=== PATIENT | male | born 1975 | race Two or more races ===

== ENCOUNTER 2018-12-12 12:07 | Emergency (ER) | payer MEDICAID ==
[~2018-12-12] VITALS: Ht 165.1 cm; Wt 68.0 kg
[2018-12-12] MEDS ORDERED: NKM (12:21)
[2018-12-12 12:25] VITALS: BP 155/92
--- NOTE | 2018-12-12 12:25 | NUR ---
ED Nurse Note: pt walked in due t0o right earache started 3 days ago, pt statd he went to pmd and was advise to go to the ed. will continue to monitor.
--- NOTE | 2018-12-12 13:24 | Emergency Room Report ---
History of Present Illness General Chief Complaint: Earache Source: Patient Present Illness HPI 42-year-old male presents to the emergency department complaining of 8 out of 10 severity pain in the right ear with fullness sensation x. Patient denies ear discharge. He denies trauma to the ear. He reports he was seen by his primary care provider who referred him to the emergency department. Patient denies fevers or chills. Denies sore throat, high fevers, lethargy, neck pain/ stiffness,CP, Palpitations, LOC, AMS, seizures, paresthesias, or changes in Hearing or vision, no Sudden severe CONTRERAS. Denies dizziness or tinnitus Allergies: Coded Allergies: No Known Allergies (Unverified , 12/12/18) Patient History Past Medical History: see triage record Past Surgical History: none Pertinent Family History: none Immunizations: UTD Reviewed Nursing Documentation: PMH: Agreed; PSxH: Agreed Nursing Documentation-PMH Past Medical History: No Stated History Review of Systems All Other Systems: negative except mentioned in HPI Physical Exam Vital Signs Date Time Temp Pulse Resp B/P (MAP) Pulse Ox O2 Delivery O2 Flow Rate FiO2 12/12/18 12:18 98.1 59 16 155/92 (113) 99 Room Air Sp02 EP Interpretation: reviewed, normal General Appearance: no apparent distress, alert, GCS 15, non-toxic Head: normocephalic, atraumatic Eyes: bilateral eye normal inspection, bilateral eye PERRL ENT: hearing grossly normal, normal pharynx, normal voice, moist mucus membranes, nasal congestion, other - mpacted cerumen of the Right ear canal. there is no evidence of TM infection or rupture, canal is macerated in appearance and some white d/c is noted. Neck: full range of motion Respiratory: lungs clear, normal breath sounds, speaking full sentences Cardiovascular #1: regular rate, rhythm Musculoskeletal: back normal, gait/station normal, normal range of motion, non- tender Neurologic: alert, oriented x3, responsive, motor strength/tone normal, sensory intact, speech normal, grossly normal Psychiatric: judgement/insight normal Lymphatic: no adenopathy Medical Decision Making PA Attestation Dr. Mueller is my supervising Physician whom patient management has been discussed with. Diagnostic Impression: Primary Impression: Impacted cerumen of right ear Additional Impression: Excessive cerumen in right ear canal ER Course 42-year-old male presents to the emergency department complaining of 8 out of 10 severity pain in the right ear with fullness sensation x. Patient denies ear discharge. He denies trauma to the ear. He reports he was seen by his primary care provider who referred him to the emergency department. Patient denies fevers or chills. Denies sore throat, high fevers, lethargy, neck pain/ stiffness,CP, Palpitations, LOC, AMS, seizures, paresthesias, or changes in Hearing or vision, no Sudden severe CONTRERAS. Denies dizziness or tinnitus Ddx considered but are not limited to OM, OE, mastoiditis, TM perforation, FB Vital signs: are WNL, pt. is afebrile H&PE are most consistent with Impacted cerumen of the Right ear canal ORDERS: none required at this time, the diagnosis is clinical -OTOSCOPY: Impacted cerumen in the Right ear canal. - Cerumen Removal: verbal consent was obtained by pt. ear irrigation was performed by ED cutter grind tool technician. Pt. tolerated well, there were no complications. re-evaluation pt. is able to hear again, there is no evidence of TM infection or rupture, canal is macerated in appearance and some white d/c is noted. ED INTERVENTIONS: None required at this time. DISCHARGE: At this time pt. is stable for d/c to home. With rx for Debrox. Will provide printed patient care instructions, and any necessary prescriptions. Care plan and follow up instructions have been discussed with the patient prior to discharge. Last Vital Signs Date Time Temp Pulse Resp B/P (MAP) Pulse Ox O2 Delivery O2 Flow Rate FiO2 12/12/18 12:25 98.1 59 16 155/92 99 Room Air Disposition: HOME, SELF-CARE Condition: Stable Scripts Ciprofloxacin Hcl/Dexameth (CIPRODEX OTIC SUSPENSION) 7.5 Ml Drops.susp 4 DROP RIGHT EAR TWICE A DAY for 7 Days, #7.5 ML Prov: Shilpi Coronel 12/12/18 Referrals: [facility],REFERRING (PCP) Patient Instructions: Cerumen Impaction Additional Instructions: Take medications as directed. Follow up with a Primary Care Provider in 3-5 days, even if your symptoms have resolved. --Please review list of primary care clinics, if you do not already have a primary care provider Return sooner to ED if new symptoms occur, or current symptoms become worse. - Please note that this Emergency Department Report was dictated using [employer] pol[employer] technology software, occasionally this can lead to erroneous entry secondary to interpretation by the dictation equipment. Shilpi Coronel Dec 12, 2018 13:24
--- NOTE | 2018-12-12 14:00 | NUR ---
ED Nurse Note: ear irrigation done and pt able to tolerate well.
[2018-12-12] MEDS ORDERED: CIPRODEX OTIC7.5 M1 RIGHT EAR (14:09)
[2018-12-12 14:30] VITALS: BP 140/90
--- NOTE | 2018-12-12 14:30 | NUR ---
ER DISCHARGE NOTE: Patient is cleared to be discharged per ERMD, pt is aox4, on room air, with stable vital signs. pt was given dc and prescription instructions, pt was able to verbalize understanding, pt id band removed without complications. pt is able to ambulate with steady gait. pt took all belongings.
== END 2018-12-12 14:30 | disposition home or self-care (01) ==
LOC: EMR 12:54
DX: H61.21 Impacted cerumen, right ear (principal)
CPT/HCPCS: 99282